=== PATIENT | female | born 1990 | race Caucasian/White ===

== ENCOUNTER 2017-07-15 13:39 | Emergency (ER) | payer MEDICAID ==
[2017-07-15 13:51] VITALS: RESP 18; TEMP 98
[2017-07-15] MEDS ORDERED: NS 500 ML IV ONE (14:01)
--- NOTE | 2017-07-15 14:01 | EDPHY ---
H & P Smoking Status: Never smoked Time Seen by Provider: 07/15/17 13:48 HPI/ROS: CHIEF COMPLAINT: Pelvic pain HISTORY OF PRESENT ILLNESS: Patient is a 27-year-old female who presents to the emergency department with 10 days of pelvic pain. The patient states for the past month or 2 she has had increased bloating and mild discomfort. However , over the past 10 days is worsened. She describes fairly diffuse lower abdominal pain. It is slightly worse on the right. It radiates "deep into my hip." Patient has had no nausea vomiting. No diarrhea. Patient has had mild whitish brown colored vaginal discharge 1 week ago. She attributed this to her period. She states she is normally regular and thinks she had a last menstrual period last week. She is not sexually active. She has had increased frequency. No dysuria or hematuria. No fevers or chills. REVIEW OF SYSTEMS: My complete review of systems is negative except as mentioned in the HPI. ( Lori Branham) Past Medical/Surgical History: Ovarian cyst Past surgical history: Denies Social history: The patient does not smoke tobacco. She occasionally uses THC. (Lori Branham) Physical Exam: Vitals noted GENERAL: Well-appearing, in no acute distress, alert. HEENT: Eyes normal to inspection, normal pharynx, no signs of dehydration. NECK: No thyromegaly, no lymphadenopathy, supple. RESPIRATORY: Clear to auscultation bilaterally, no rales, rhonchi or wheezing. CVS: Regular rate and rhythm, no rubs, murmurs, or gallops. ABDOMEN: Soft, the mild right lower quadrant and suprapubic tenderness to palpation with no rebound or guarding, nondistended, no organomegaly. BACK: Normal to inspection, no CVA tenderness. SKIN: Normal color, no rash, warm, dry. No pallor. EXTREMITIES: No pedal edema, no calf tenderness, no Homans sign or cords, no joint swelling. NEURO/PSYCH: Alert and oriented, normal mood and affect, normal motor sensory exam. (Lori Branham S) Constitutional: Initial Vital Signs Temperature (C) 36.6 C 07/15/17 13:49 Heart Rate 74 07/15/17 13:49 Respiratory Rate 18 07/15/17 13:49 Blood Pressure 110/62 07/15/17 13:49 O2 Sat (%) 99 07/15/17 13:49 O2 Delivery Mode Room Air Allergies/Adverse Reactions: No Known Allergies Allergy (Unverified 07/15/17 13:48) Home Medications: Medication Instructions Recorded NK [No Known Home Meds] 07/15/17 Medical Decision Making - Diagnostics Imaging Results: Imaging Impressions Abdomen Ultrasound 07/15/17 14:01 Impression: Probable small leiomyoma left mid myometrium. Otherwise, normal pelvic ultrasound. Ultrasound Limited Right Lower Quadrant History: Right lower quadrant pain. Findings: There is a small tubular structure suggesting a normal appendix measuring 3 mm. No evidence for an abnormally enlarged appendix or abnormal fluid collection. Impression: No ultrasound findings for appendicitis. Results called to Dr. Brigitte Michael on 15 July 2017 at 1530 hours. Pelvic/Renal Ultrasound 07/15/17 14:01 Impression: Probable small leiomyoma left mid myometrium. Otherwise, normal pelvic ultrasound. Ultrasound Limited Right Lower Quadrant History: Right lower quadrant pain. Findings: There is a small tubular structure suggesting a normal appendix measuring 3 mm. No evidence for an abnormally enlarged appendix or abnormal fluid collection. Impression: No ultrasound findings for appendicitis. Results called to Dr. Brigitte Michael on 15 July 2017 at 1530 hours. ED Course/Re-evaluation: In the emergency department I discussed possible etiologies with the patient. I answered all her questions. An IV was placed. Urine was obtained. Ultrasound was ordered. The patient was offered but did not want pain medication. Nurse was present for exam. FEMALE : Patient has a normal external pelvic exam. No lesions or discharge. Speculum exam is normal. Normal appearing cervix. No lesions or discharge. Bimanual exam: Normal, no tenderness to palpation bilaterally, normal ovaries bilaterally, normal uterus. 1424: The patient does not want any pain medication. On recheck she is stable. 1448: Patient's CBC and chemistry are normal. is negative. Urine shows +1 bacteria occasionally yeast. A UA is pending. 1500: Pt is signed out at change of shift to Dr. Michael. I discussed the plan with the patient. She is awaiting ultrasound. I answered all her questions. (Lori Branham) Differential Diagnosis: My differential includes but is not limited to appendicitis, ovarian cyst, ovarian torsion, , ectopic , STD, PID, tubo-ovarian abscess ( Lori Branham) - Data Points Laboratory Results: Laboratory Results 07/15/17 14:10 07/15/17 14:10 07/15/17 07/15/17 07/15/17 14:25 14:25 14:10 WBC RBC Hgb Hct MCV MCH MCHC RDW Plt Count MPV Neut % (Auto) Lymph % (Auto) [place] % (Auto) Eos % (Auto) Baso % (Auto) Nucleat RBC Rel Count Absolute Neuts (auto) Absolute Lymphs (auto) Absolute Monos (auto) Absolute Eos (auto) Absolute Basos (auto) Absolute Nucleated RBC Immature Gran % Immature Gran # Sodium Potassium Chloride Carbon Dioxide Anion Gap BUN Creatinine Estimated GFR Glucose Calcium Beta HCG, Qual Urine Color YELLOW Urine Appearance CLEAR Urine pH 7.0 (5.0-7.5) Ur Specific [place] <= 1.005 (1.002-1.030) Urine Protein NEGATIVE (NEGATIVE) Urine Ketones NEGATIVE (NEGATIVE) Urine Blood NEGATIVE (NEGATIVE) Urine Nitrate NEGATIVE (NEGATIVE) Urine Bilirubin NEGATIVE (NEGATIVE) Urine Urobilinogen 0.2 EU EU (0.2-1.0) Ur Leukocyte Esterase NEGATIVE (NEGATIVE) Urine RBC Urine WBC Ur Epithelial Cells Urine Bacteria Urine Yeast Urine Glucose NEGATIVE (NEGATIVE) Ary species DNA Pending C.trachomatis RNA (TMA) Pending Gardnerella DNA Probe Pending N.gonorrhoeae RNA (TMA) Pending Trichomonas DNA Probe Pending 07/15/17 07/15/17 07/15/17 14:10 14:10 14:10 WBC RBC Hgb Hct MCV MCH MCHC RDW Plt Count MPV Neut % (Auto) Lymph % (Auto) [place] % (Auto) Eos % (Auto) Baso % (Auto) Nucleat RBC Rel Count Absolute Neuts (auto) Absolute Lymphs (auto) Absolute Monos (auto) Absolute Eos (auto) Absolute Basos (auto) Absolute Nucleated RBC Immature Gran % Immature Gran # Sodium 140 mEq/L mEq/L (134-144) Potassium 4.0 mEq/L mEq/L (3.5-5.2) Chloride 101 mEq/L mEq/L (97-110) Carbon Dioxide 26 mEq/l mEq/l (22-31) Anion Gap 13 mEq/L mEq/L (8-16) BUN 8 mg/dL mg/dL (7-23) Creatinine 0.7 mg/dL mg/dL (0.6-1.0) Estimated GFR > 60 Glucose 77 mg/dL mg/dL (70-100) Calcium 9.5 mg/dL mg/dL (8.5-10.4) Beta HCG, Qual NEGATIVE Urine Color Urine Appearance Urine pH Ur Specific [place] Urine Protein Urine Ketones Urine Blood Urine Nitrate Urine Bilirubin Urine Urobilinogen Ur Leukocyte Esterase Urine RBC 0-1 /hpf /hpf (0-3) Urine WBC NONE SEEN /hpf /hpf (0-3) Ur Epithelial Cells TRACE /lpf /lpf (NONE-1+) Urine Bacteria 1+ /hpf H /hpf (NONE SEEN) Urine Yeast OCCASIONAL /hpf H /hpf (NONE SEEN) Urine Glucose Ary species DNA C.trachomatis RNA (TMA) Gardnerella DNA Probe N.gonorrhoeae RNA (TMA) Trichomonas DNA Probe 07/15/17 14:10 WBC 4.69 10^3/uL 10^3/uL (3.80-9.50) RBC 4.87 10^6/uL 10^6/uL (4.18-5.33) Hgb 14.4 g/dL g/dL (12.6-16.3) Hct 43.1 % % (38.0-47.0) MCV 88.5 fL fL (81.5-99.8) MCH 29.6 pg pg (27.9-34.1) MCHC 33.4 g/dL g/dL (32.4-36.7) RDW 13.0 % % (11.5-15.2) Plt Count 266 10^3/uL 10^3/uL (150-400) MPV 8.9 fL fL (8.7-11.7) Neut % (Auto) 58.7 % % (39.3-74.2) Lymph % (Auto) 31.1 % % (15.0-45.0) [place] % (Auto) 7.9 % % (4.5-13.0) Eos % (Auto) 1.7 % % (0.6-7.6) Baso % (Auto) 0.4 % % (0.3-1.7) Nucleat RBC Rel Count 0.0 % % (0.0-0.2) Absolute Neuts (auto) 2.75 10^3/uL 10^3/uL (1.70-6.50) Absolute Lymphs (auto) 1.46 10^3/uL 10^3/uL (1.00-3.00) Absolute Monos (auto) 0.37 10^3/uL 10^3/uL (0.30-0.80) Absolute Eos (auto) 0.08 10^3/uL 10^3/uL (0.03-0.40) Absolute Basos (auto) 0.02 10^3/uL 10^3/uL (0.02-0.10) Absolute Nucleated RBC 0.00 10^3/uL 10^3/uL (0-0.01) Immature Gran % 0.2 % % (0.0-1.1) Immature Gran # 0.01 10^3/uL 10^3/uL (0.00-0.10) Sodium Potassium Chloride Carbon Dioxide Anion Gap BUN Creatinine Estimated GFR Glucose Calcium Beta HCG, Qual Urine Color Urine Appearance Urine pH Ur Specific [place] Urine Protein Urine Ketones Urine Blood Urine Nitrate Urine Bilirubin Urine Urobilinogen Ur Leukocyte Esterase Urine RBC Urine WBC Ur Epithelial Cells Urine Bacteria Urine Yeast Urine Glucose Ary species DNA C.trachomatis RNA (TMA) Gardnerella DNA Probe N.gonorrhoeae RNA (TMA) Trichomonas DNA Probe Medications Given: Discontinued Medications Sodium Chloride (Ns) 500 mls @ 0 mls/hr IV ONCE ONE; Wide Open PRN Reason: Protocol Stop: 07/15/17 14:02 Last Admin: 07/15/17 14:09 Dose: 500 mls Departure - Departure Disposition: Home, Routine, Self-Care Clinical Impression: Pelvic pain Abdominal pain Qualifiers: Abdominal location: lower abdomen, unspecified Qualified Code(s): R10.30 - Lower abdominal pain, unspecified Condition: Good Instructions: Pelvic Pain in Women (ED), Abdominal Pain (ED) Referrals: NONE *PRIMARY CARE P,. [Primary Care Provider] - As per Instructions
[2017-07-15 14:19] LABS: % IMMATURE GRANULYOCYTES 0.2 % (0.0-1.1); ABSOLUTE IMMATURE GRANULOCYTES 0.01 10^3/uL (0.00-0.10); ADD DIFF? NO; ADD MORPH? NO; ADD SCAN? NO; ATYPICAL LYMPHOCYTE FLAG 10 (0-99); FRAGMENT RBC FLAG 0 (0-99); HEMATOCRIT 43.1 % (38.0-47.0); HEMOGLOBIN 14.4 g/dL (12.6-16.3); LEFT SHIFT FLG 0 (0-99); LIPEMIA HEMOLYSIS FLAG 80 (0-99); MEAN CELL HEMOGLOBIN 29.6 pg (27.9-34.1); MEAN CELL HEMOGLOBIN CONCENTR. 33.4 g/dL (32.4-36.7); MEAN CELL VOLUME 88.5 fL (81.5-99.8); MEAN PLATELET VOLUME 8.9 fL (8.7-11.7); PLATELET CLUMPS FLAG 0 (0-99); PLATELET COUNT 266 10^3/uL (150-400); RED BLOOD CELL COUNT 4.87 10^6/uL (4.18-5.33)
[2017-07-15 14:34] LABS: ANION GAP 13 mEq/L (8-16); CALCIUM 9.5 mg/dL (8.5-10.4); CARBON DIOXIDE 26 mEq/l (22-31); CHLORIDE 101 mEq/L (97-110); CREATININE 0.7 mg/dL (0.6-1.0); GLOMERULAR FILTRATION RATE > 60; GLUCOSE 77 mg/dL (70-100); SODIUM 140 mEq/L (134-144)
[2017-07-15 14:41] LABS: BACTERIA 1+ /hpf (NONE SEEN); RBC,URINE 0-1 /hpf (0-3); WBC,URINE NONE SEEN /hpf (0-3); YEAST OCCASIONAL /hpf (NONE SEEN)
[2017-07-15 14:51] LABS: COLOR YELLOW
[2017-07-15 14:52] LABS: LEUKOCYTE ESTERASE,URINE NEGATIVE (NEGATIVE); NITRITE,URINE NEGATIVE (NEGATIVE)
[2017-07-15 15:57] VITALS: BP 112/62; PULSE 62; O2SAT 97
[2017-07-16 12:15] LABS: CHLAMYDIA AMPLIFICATION GENPRB NEGATIVE (NEGATIVE)
== END 2017-07-15 15:56 | disposition home or self-care (01) ==
LOC: CED 13:39
PROC: 3E0337Z Introduction of Electrolytic and Water Balance Substance into Peripheral Vein, Percutaneous Approach (ICD-10-PCS; principal; 2017-07-15)
DX: R10.2 Pelvic and perineal pain (principal); R10.31 Right lower quadrant pain; E86.9 Volume depletion, unspecified
CPT/HCPCS: 76705-PO; 76856-PO; 80048-PO; 81003-PO; 81015-PO; 84703-PO; 85025-PO